=== PATIENT | female | born 1960 | race Caucasian/White ===

== ENCOUNTER 2017-05-14 14:26 | Inpatient (IN) | payer OTHER ==
[~2017-05-14] VITALS: Ht 152.4 cm; Wt 81.6 kg
[2017-05-14] MEDS ORDERED: LISI-607 PO (14:36)
[2017-05-14] MEDS ORDERED: HYDR25TA4 PO (14:36)
--- NOTE | 2017-05-14 14:50 | NUR ---
Pt is able to speak clearly at this time with no acute resp distress noted. Pt placed on cardiac specialist and cont pulse ox. Dr. Johnston at bedside.
--- NOTE | 2017-05-14 14:58 | NUR ---
Pt moved from room 4a to 1a per Dr. Preston bains.
[2017-05-14] MEDS ORDERED: EPINEPHRINE 1 MG/1 ML AMP ONE (15:00)
[2017-05-14] MEDS ORDERED: FAMOTIDINE. 20 MG/2 ML VIAL IV ONE ×2 (15:00→15:10)
[2017-05-14] MEDS ORDERED: EPINEPHRINE 1 MG/1 ML AMP SQ ONE (15:00)
[2017-05-14] MEDS ORDERED: diphenhydrAMINE 50 MG/1 ML VIAL IV ONE (15:00)
[2017-05-14] MEDS ORDERED: methylPREDNISolone SOD SUCC 125 MG/2 ML VIAL IV ONE (15:00)
[2017-05-14] MEDS ORDERED: methylPREDNISolone SOD SUCC 125 MG/2 ML VIAL ONE (15:09)
[2017-05-14] MEDS ORDERED: diphenhydrAMINE 50 MG/1 ML VIAL ONE (15:09)
--- NOTE | 2017-05-14 15:35 | NUR ---
Pt resting in [facility], speech remains clear, no acute resp distress noted at this time.
[2017-05-14 15:56] LABS: BASOPHILS # (AUTO) 0.1 K/uL (0.0-8.0); BASOPHILS % (AUTO) 0.6 % (0.0-2.0); EOSINOPHILS # (AUTO) 0.2 K/uL (0.0-0.7); EOSINOPHILS % (AUTO) 1.9 % (0.0-7.0); HEMATOCRIT 39.8 % (37-47); HEMOGLOBIN 12.9 G/DL (12.0-16.0); LYMPHOCYTES # (AUTO) 2.7 K/UL (0.8-4.8); LYMPHOCYTES % (AUTO) 29.9 % (20.5-51.5); MEAN CORPUSCULAR HEMOGLOBIN 26.5 UUG (27.0-31.0); MEAN CORPUSCULAR HGB CONC 32 g/dL (32.0-37.0); MEAN CORPUSCULAR VOLUME 82.2 FL (81.0-99.0); MONOCYTES # (AUTO) 0.5 K/UL (0.1-1.30); MONOCYTES % (AUTO) 5.3 % (0.0-11.0); NEUTROPHILS # (AUTO) 5.6 K/UL (1.8-8.9); NEUTROPHILS % (AUTO) 62.3 % (38.5-71.5); PLATELET COUNT (AUTO) 323 K/UL (150-450); RED BLOOD CELL COUNT(AUTO) 4.85 MIL/UL (4.2-5.4); WHITE BLOOD COUNT (AUTO) 9.1 K/UL (4.0-11.2)
[2017-05-14 16:02] LABS: POTASSIUM 4.1 mmol/L (3.5-5.1)
[2017-05-14 16:08] LABS: BILIRUBIN,DIRECT 0.1 mg/dL (0.0-0.2); BILIRUBIN,TOTAL 0.3 mg/dL (0.2-1.0); TOTAL PROTEIN, SERUM 7.8 g/dL (6.4-8.2)
--- NOTE | 2017-05-14 16:50 | NUR ---
Pt resting with NAD noted at this time.
--- NOTE | 2017-05-14 17:00 | NUR ---
Nanette Small,FOOD CHEMIST in to see pt.
--- NOTE | 2017-05-14 18:02 | NUR ---
Patient property management form completed. Pt has her purse, did not want me to document contents and stated she will send it home with her boyfriend.
--- NOTE | 2017-05-14 18:10 | NUR ---
Pt trans to tele post re-eval by [facility] noted upon transfer.
--- NOTE | 2017-05-14 18:24 | NUR ---
received from ER awake alert and oriented per saurav with c/o swelling of throat after taking Lisinopril 6 hrs prior but was ate Tamale just before, states swelling is much lesser, denies of shortness of breath, tele SR, routine admission care rendered, oriented to bed controls and call button.
[2017-05-14 18:34] VITALS: BP 139/93
[2017-05-14] MEDS ORDERED: LORAZEPAM 1 MG TABLET PO PRN (18:45)
[2017-05-14] MEDS ORDERED: IV 1/2NS 1000 ML 1,000 ML IV PRN (18:45)
[2017-05-14] MEDS ORDERED: diphenhydrAMINE 50 MG/1 ML VIAL IV PRN (18:45)
[2017-05-14] MEDS ORDERED: ONDANSETRON 4 MG/2 ML VIAL IV PRN (18:45)
[2017-05-14] MEDS ORDERED: ZOLPIDEM 5 MG TABLET PO PRN (18:45)
[2017-05-14] MEDS ORDERED: ACETAMINOPHEN 325 MG TABLET PO PRN (18:45)
[2017-05-14 19:46] VITALS: BP 135/80
--- NOTE | 2017-05-14 20:00 | NUR ---
nsg: pt received a/o x 4, a bit drowsy but arousable. denies discomfort. lungs sound clear to auscultate. tele SR. ambulatory with standby assist. cont to monitor.
[2017-05-14] MEDS: METOPROLOL TARTRATE 25 MG TABLET PO SCH (20:08)
[2017-05-14] MEDS: methylPREDNISolone SOD SUCC 40 MG/ML VIAL IV SCH (20:08)
[2017-05-14] MEDS: FAMOTIDINE. 20 MG/2 ML VIAL IV SCH (20:08)
--- NOTE | 2017-05-14 21:30 | NUR ---
nsg: smoking cessation handout provided to patient. verbalized understanding the need to quit smoking.
[2017-05-15 00:30] VITALS: BP 135/69
--- NOTE | 2017-05-15 05:14 | NUR ---
NSG: pt slept entire night, denies discomfort. all needs attended. tele, SB with hr as low as 44. cont to monitor.
[2017-05-15 06:13] VITALS: BP 138/90
[2017-05-15 06:44] LABS: BASOPHILS # (AUTO) 0.1 K/uL (0.0-8.0); BASOPHILS % (AUTO) 0.7 % (0.0-2.0); EOSINOPHILS % (AUTO) 0.1 % (0.0-7.0); HEMATOCRIT 46.7 % (37-47); LYMPHOCYTES # (AUTO) 1.1 K/UL (0.8-4.8); LYMPHOCYTES % (AUTO) 8.7 % (20.5-51.5); MEAN CORPUSCULAR HEMOGLOBIN 26.8 UUG (27.0-31.0); MEAN CORPUSCULAR HGB CONC 32 g/dL (32.0-37.0); MEAN CORPUSCULAR VOLUME 83.3 FL (81.0-99.0); MONOCYTES # (AUTO) 0.1 K/UL (0.1-1.30); MONOCYTES % (AUTO) 0.8 % (0.0-11.0); NEUTROPHILS % (AUTO) 89.7 % (38.5-71.5); PLATELET COUNT (AUTO) 358 K/UL (150-450); RED BLOOD CELL COUNT(AUTO) 5.61 MIL/UL (4.2-5.4); WHITE BLOOD COUNT (AUTO) 12.3 K/UL (4.0-11.2)
--- NOTE | 2017-05-15 07:20 | NUR ---
RECEIVED REPORT FROM STAMPER BLOCK[employer] NURSE, PATIENT IS IN BED, NO EVIDENCE OF DISTRESS NOTED, NO SOB NOTED, NO CYANOSIS.
[2017-05-15 07:27] LABS: THYROID STIMULATING HORMONE 0.534 mIU/mL (0.358-3.740)
[2017-05-15] MEDS: METOPROLOL TARTRATE 25 MG TABLET PO SCH (09:00)
[2017-05-15] MEDS: methylPREDNISolone SOD SUCC 40 MG/ML VIAL IV SCH (09:14)
[2017-05-15] MEDS: FAMOTIDINE. 20 MG/2 ML VIAL IV SCH (09:14)
[2017-05-15 10:02] LABS: BILIRUBIN,TOTAL 0.5 mg/dL (0.2-1.0); CREATININE 1.2 mg/dL (0.6-1.3); POTASSIUM 3.8 mmol/L (3.5-5.1)
[2017-05-15 10:03] LABS: TOTAL PROTEIN, SERUM 7.5 g/dL (6.4-8.2)
[2017-05-15 11:11] VITALS: BP 117/66
[2017-05-15 15:33] VITALS: BP 122/74
[2017-05-15] MEDS ORDERED: FAMO20TA8 PO (16:24)
[2017-05-15] MEDS ORDERED: METO25TA6 PO (16:24)
--- NOTE | 2017-05-15 16:28 | NUR ---
DISCHARGE ORDERS RECEIVED. PATIENT WILL BE DISCHARGED TO HOME. NO EVIDENCE OF DISTRESS NOTED, NO SOB, NO PAIN.
[2017-05-15] MEDS ORDERED: FAMOTIDINE 20 MG TABLET PO SCH (21:00)
== END 2017-05-15 16:55 | disposition home or self-care (01) | DRG 811 ==
LOC: ER 14:26 → TELE 18:09
PROVIDERS: ADMIT Internal Medicine; ATTEND Internal Medicine
DX: T78.3XXA Angioneurotic edema, initial encounter (principal); I10 Essential (primary) hypertension; T46.4X5A Adverse effect of angiotensin-converting-enzyme inhibitors, initial encounter; Y92.009 Unspecified place in unspecified non-institutional (private) residence as the place of occurrence of the external cause; Z98.82 Breast implant status; Z98.890 Other specified postprocedural states; Z88.0 Allergy status to penicillin; Z88.8 Allergy status to other drugs, medicaments and biological substances; E66.9 Obesity, unspecified; Z68.35 Body mass index [BMI] 35.0-35.9, adult; E78.5 Hyperlipidemia, unspecified; J98.11 Atelectasis; Z79.899 Other long term (current) drug therapy; F17.210 Nicotine dependence, cigarettes, uncomplicated
CPT/HCPCS: 36415; 70360; 71010; 83550; 83735; 84100; 84443; 85025; 85730; 93005; J0171; J1200; J2920; J2930; J3490